=== PATIENT | female | born 2000 | race Caucasian/White ===

== ENCOUNTER 2023-11-20 15:46 | Outpatient (CLI) | payer BC ==
[2023-11-20 16:51] LABS: #Eosinphils 0.1 10x3/uL (0.0-0.5); #Monocytes 0.3 10x3/uL (0.0-1.1); #Neutrophils 4.3 10x3/uL (1.5-8.4); %Basophils 0.5 % (0.0-2.0); %Eosinophils 0.8 % (0.0-6.0); %Lymphocytes 26.5 % (18.0-47.0); %Monocytes 5.1 % (0.0-10.0); %Neutrophils 66.8 % (40.0-75.0); Hematocrit 39.1 % (34.9-44.5); Hemoglobin 13.4 g/dL (12.0-15.5); Mean Corpuscular HGB CONC 34.3 g/dL (32.0-36.0); Mean Corpuscular Hemoglobin 29.5 pg (27.0-33.0); Mean Corpuscular Volume 86.1 fl (81.6-98.3); Mean Platelet Volume 11.1 fl (7.4-10.4); Platelet Count 236 10x3/uL (150-450); RBC Distribution Width 12.3 % (11.5-14.5); Red Blood Cell (RBC) Count 4.54 10x6/uL (3.90-5.03); White Blood Cell (WBC) Count 6.5 10x3/uL (3.5-10.5)
[2023-11-20 16:59] LABS: BHCG - Serum Negative (NEGATIVE); Pregs Control Background? CLEAR/WHITE (CLR/WHITE); Pregs Control Bar Appear? YES (CONTROL BAR)
== END 2023-11-20 15:47 | disposition home or self-care (01) ==
LOC: LABBT 15:46
PROVIDERS: ATTEND Surgery
DX: Z01.812 Encounter for preprocedural laboratory examination (principal); K60.1 Chronic anal fissure
CPT/HCPCS: 84703; 85025

== ENCOUNTER 2023-11-21 08:56 | Day surgery (SDC) | payer BC ==
[2023-11-20 16:08] VITALS: BMI 19.7
[2023-11-21] MEDS ORDERED: PROPOFOL 20 ML ONE (10:49)
[2023-11-21] MEDS ORDERED: fentaNYL PF 100 MCG/2 ML SYRINGE ONE (10:49)
[2023-11-21] MEDS ORDERED: EPINEPHrine 1 MG/ML VIAL ONE (10:51)
[2023-11-21] MEDS ORDERED: Bupivacaine 0.25% HCL 30 ML VIAL ONE (10:51)
[2023-11-21] MEDS ORDERED: Midazolam HCl 2 mg/2 ml Vial ONE (10:55)
[2023-11-21] MEDS ORDERED: cefOXitin 2 GM VIAL ONE (10:56)
[2023-11-21] MEDS ORDERED: Sodium Chloride 0.9% 100 ML ONE (10:56)
[2023-11-21] MEDS ORDERED: Dexamethasone 4 mg/ml Vial ONE (11:08)
[2023-11-21] MEDS ORDERED: Ondansetron PF 4 MG/2 ML Vial ONE (11:08)
[2023-11-21] MEDS ORDERED: Ketorolac Tromethamine 30 MG (1 mL) VIAL ONE (11:41)
== END 2023-11-21 12:42 | disposition home or self-care (01) ==
LOC: SDC 08:56
PROVIDERS: ATTEND Surgery
PROC: 0D8R3ZZ Division of Anal Sphincter, Percutaneous Approach (ICD-10-PCS; principal; 2023-11-21)
DX: K60.1 Chronic anal fissure (principal); F41.9 Anxiety disorder, unspecified; Z90.49 Acquired absence of other specified parts of digestive tract; Z79.899 Other long term (current) drug therapy
CPT/HCPCS: J0171; J0665; J0694; J1100; J1885; J2250; J2405; J2704; J3490